=== PATIENT | male | born 1975 | race Caucasian/White ===

== ENCOUNTER 2025-03-03 03:44 | Observation (INO) | payer OTHER, SELFPAY ==
[2025-03-02 17:13] VITALS: BP 158/97
[2025-03-02 17:31] LABS: Hematocrit 43.7 % (39.0-52.0); Hemoglobin 14.8 g/dL (13.0-18.0); Mean Corp Hgb Conc. 33.9 g/dL (33.0-37.0); Mean Corpuscular Volume 83.4 fL (80.0-94.0); Nucleated Red Blood Cells % 0 % (-); Platelet Count 291 10^3/uL (130-400); Red Cell Dist. Width 12.6 % (11.5-14.5)
[2025-03-02 17:44] LABS: INR 0.96; PT 12.9 Sec (11.4-14.6)
[2025-03-02 17:47] LABS: ALT (SGPT) 37 U/L (0-50); AST (SGOT) 53 U/L (17-59); Albumin 4.7 g/dl (3.5-5.0); Alkaline Phosphatase 86 U/L (38-126); Blood Urea Nitrogen 19 mg/dl (9-20); Calcium 9.5 mg/dl (8.4-10.2); Carbon Dioxide 23 mmol/L (22-30); Chloride 104 mmol/L (98-107); Glucose 79 mg/dl (70-99); Potassium 4.1 mmol/L (3.5-5.1); Sodium 136 mmol/L (135-145); Total Protein 7.2 g/dl (6.3-8.2); eGFR > 60.00
[2025-03-02 17:56] LABS: Troponin I 0.030 ng/ml
[2025-03-02 21:52] VITALS: BP 131/89
[2025-03-02 22:53] LABS: Troponin I 0.035 ng/ml
--- NOTE | 2025-03-02 23:34 | ED.GENMED ---
History of Present Illness
<Tari Rivera PA-C - Last Filed: 03/03/25 07:32>
General
Chief Complaint: Musculo-Skeletal Complaint
Source: patient
Exam Limitations: none
Time Seen by Provider: 03/02/25 23:09
Nursing documentation reviewed up to this point in time: agreed with
History of Present Illness
History of Present Illness:
49-year-old male with past medical history of renal stones who presents to the ER today with concerns of left arm weakness and pain for the past 3 weeks intermittently on and off. The past week, he started to develop left leg cramping with this as
well. He is particularly concerned about cardiac etiology as he has a father who had a aortic aneurysm repair and uncle who had a heart attack at a young age. Patient denies any central chest pain at this time. He denies any fevers or chills. He
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 He denies any back pain. He denies abdominal pain, nausea, vomiting.
Troponin was ordered prior to my which is slightly elevated. He denies any cough or cold-like symptoms. He denies any recent long distance travel. He does not smoke. Physically high cholesterol but is not taking medications for this. He does
not take any medication for blood pressure
Review of Systems
<Tari Rivera PA-C - Last Filed: 03/03/25 07:32>
Review of Systems
All Other Systems: ROS reviewed and negative except as documented in HPI and ROS
Phy Exam
<Tari Rivera PA-C - Last Filed: 03/03/25 07:32>
Physical Exam
Physical Exam:
General: Patient is well appearing and in no acute distress; non-toxic
Skin: Warm and dry, no rashes or lesions
Head: Normocephalic, atraumatic
Eyes: Sclera non-icteric. EOMs intact.
Cardiac: Regular rate and rhythm, no murmurs
Peripheral Vascular: No lower extremity swelling or edema
Pulm: Normal respiratory effort, no wheezes, rales, or rhonchi
Abdomen: No abdominal tenderness to palpation
Neuro: CN II-XII intact, no focal neurologic deficits.
Psychiatric: Appropriate mood and affect.
Course
<Tari Rivera PA-C - Last Filed: 03/03/25 07:32>
Orders/Labs/Results
Orders:
Orders
03/02/25 17:07
EKG [Electrocardiogram (*1)] Urgent
Reason for Study: Fatigue / Weakness
EKG- Treatment ONCE
03/02/25 17:23
Complete Blood Count/With Diff Urgent
Comprehensive Metabolic Panel Urgent
Prothrombin Time Urgent
Troponin I Urgent
03/02/25 22:04
Troponin I Urgent
03/02/25 23:30
Electrocardiogram (*1) Urgent
Reason for Study: Other
Other Reason for Exam: anginal equivalent
03/03/25
CT Chest Angio W/wo Iv Contras Urgent
Reason For Exam: left arm pain, elevated trop
03/03/25 03:29
Admit/Transfer Patient As Directed
Co-Sign Provider:
Level of Care: Observation services
Assign to:: Telemetry
Physician / Group: Thom
Diagnosis: Arm pain
Reason for Telemetry: Chest Pain syndromes
Date to Stop Telemetry: 03/05/25
Time to Stop Telemetry: 11:00
03/03/25 03:30
Code Status As Directed
Resuscitation Status: Full Code
PRN Pain Medication Management As Directed
May give lesser potent ordered pain med per pt: Yes
preference::
Protocol:: Medication orders for pain may be administered in a
manner that supports deferring to patient preference
when the pt is:
- Requesting an ordered lesser potent pain medication.
Least to most potent pain medications are defined
as: acetaminophen < NSAID < tramadol < opioids
(morphine, oxycodone, hydromorphone).
- Requesting a lesser dose of the same medication IF
ORDERED.
- Requesting a less intrusive route of administration
if both routes are prescribed by the provider (PO <
IV).
03/03/25 03:52
Activity As Directed
Activity Level: Ambulate
EKG with chest pain [ECG as needed] As Directed
ECG as needed for:: Chest Pain
I/O [Intake/ Output] As Directed
Frequency: Per unit guidelines
Vital Signs As Directed
Frequency: Per unit guidelines
Weight As Directed
Frequency: Daily
Ot Eval And Treat Routine
DX Deep Vein Thrombosis Video Routine
03/03/25 04:00
Acetaminophen [Tylenol] 650 mg PO Q4HPRN PRN
03/03/25 04:57
Basic Metabolic Panel IN AM
Cardiovascular Evaluation IN AM
Complete Blood Count/No Diff IN AM
Glycohemoglobin (HgbA1c) Routine
Troponin I Routine
03/03/25 06:00
EKG [Electrocardiogram (*1)] IN AM
Reason for Study: Chest Pain
NPO
Allow oral meds: Yes
Allow clear liquids: Sips of Clears
03/03/25 08:00
Aspirin Chewable [Low Strength Aspirin] 81 mg PO DAILY
desvenlafaxine succinate [Pristiq] 50 mg PO DAILY
03/03/25 18:00
Enoxaparin Sodium [Lovenox] 40 mg SC QPM
03/05/25 11:00
DC Protocol for Telemetry ONCE
Abnormal Lab Results
03/02/25
22:04
Troponin I 0.035 H* ng/ml
03/02/25 17:23
03/02/25 17:23
Vital Signs
Initial and Last Documented VS:
Initial Vital Signs
Temp Pulse Resp BP Pulse Ox
98.8 F 73 18 158/97 98
03/02/25 17:13 03/02/25 17:13 03/02/25 17:13 03/02/25 17:13 03/02/25 17:13
Last Documented Vital Signs
Temp Pulse Resp BP Pulse Ox
98.8 F 52 12 120/75 98
03/02/25 17:13 03/03/25 06:00 03/03/25 06:00 03/03/25 03:09 03/02/25 23:40
<Martin Francis, DO - Last Filed: 03/02/25 23:50>
Orders/Labs/Results
Orders:
Orders
03/02/25 17:07
EKG [Electrocardiogram (*1)] Urgent
Reason for Study: Fatigue / Weakness
EKG- Treatment ONCE
03/02/25 17:23
Complete Blood Count/With Diff Urgent
Comprehensive Metabolic Panel Urgent
Prothrombin Time Urgent
Troponin I Urgent
03/02/25 22:04
Troponin I Urgent
03/02/25 23:30
Electrocardiogram (*1) Urgent
Reason for Study: Other
Other Reason for Exam: anginal equivalent
03/03/25
CT Chest Angio W/wo Iv Contras Urgent
Reason For Exam: left arm pain, elevated trop
03/03/25 03:29
Admit/Transfer Patient As Directed
Co-Sign Provider:
Level of Care: Observation services
Assign to:: Telemetry
Physician / Group: Thom
Diagnosis: Arm pain
Reason for Telemetry: Chest Pain syndromes
Date to Stop Telemetry: 03/05/25
Time to Stop Telemetry: 11:00
03/03/25 03:30
Code Status As Directed
Resuscitation Status: Full Code
PRN Pain Medication Management As Directed
May give lesser potent ordered pain med per pt: Yes
preference::
Protocol:: Medication orders for pain may be administered in a
manner that supports deferring to patient preference
when the pt is:
- Requesting an ordered lesser potent pain medication.
Least to most potent pain medications are defined
as: acetaminophen < NSAID < tramadol < opioids
(morphine, oxycodone, hydromorphone).
- Requesting a lesser dose of the same medication IF
ORDERED.
- Requesting a less intrusive route of administration
if both routes are prescribed by the provider (PO <
IV).
03/03/25 03:52
Activity As Directed
Activity Level: Ambulate
EKG with chest pain [ECG as needed] As Directed
ECG as needed for:: Chest Pain
I/O [Intake/ Output] As Directed
Frequency: Per unit guidelines
Vital Signs As Directed
Frequency: Per unit guidelines
Weight As Directed
Frequency: Daily
Ot Eval And Treat Routine
DX Deep Vein Thrombosis Video Routine
03/03/25 04:00
Acetaminophen [Tylenol] 650 mg PO Q4HPRN PRN
03/03/25 04:57
Basic Metabolic Panel IN AM
Cardiovascular Evaluation IN AM
Complete Blood Count/No Diff IN AM
Glycohemoglobin (HgbA1c) Routine
Troponin I Routine
03/03/25 06:00
EKG [Electrocardiogram (*1)] IN AM
Reason for Study: Chest Pain
NPO
Allow oral meds: Yes
Allow clear liquids: Sips of Clears
03/03/25 08:00
Aspirin Chewable [Low Strength Aspirin] 81 mg PO DAILY
desvenlafaxine succinate [Pristiq] 50 mg PO DAILY
03/03/25 18:00
Enoxaparin Sodium [Lovenox] 40 mg SC QPM
03/05/25 11:00
DC Protocol for Telemetry ONCE
Abnormal Lab Results
03/02/25
22:04
Troponin I 0.035 H* ng/ml
03/02/25 17:23
03/02/25 17:23
Vital Signs
Initial and Last Documented VS:
Initial Vital Signs
Temp Pulse Resp BP Pulse Ox
98.8 F 73 18 158/97 98
03/02/25 17:13 03/02/25 17:13 03/02/25 17:13 03/02/25 17:13 03/02/25 17:13
Last Documented Vital Signs
Temp Pulse Resp BP Pulse Ox
98.8 F 52 12 120/75 98
03/02/25 17:13 03/03/25 06:00 03/03/25 06:00 03/03/25 03:09 03/02/25 23:40
Edithlt;Tari Rivera PA-C - Last Filed: 03/03/25 07:32>
MDM/Problems Addressed
Differential Diagnosis Includes:
Left arm sprain, pericarditis, myocarditis, ACS, PE, pneumothorax
MDM/Problems Addressed:
49-year-old male presents to ER today with concerns of left arm pain. He is concerned for cardiac etiology because he has a strong family history. Pain is worse with movement. He has no arm pain at rest. No chest pain at rest. Clinically,
sounds like musculoskeletal etiology however troponin ordered prior arrival was elevated at 0.035 with no ischemic changes on his ECG. Prior to arrival, ECG was not repeated with repeat abnormal troponin. I have ordered this urgently and we will
place IV.
CTA negative for aneurysm, dissection, pulmonary embolism. He will require admission for continued trending of troponins and cardiac evaluation in light of family hx
<Tari Rivera PA-C - Last Filed: 03/03/25 07:32>
*Pulse Oximetry
SaO2: 98
Oxygen Mode of Delivery: Room air
Patient hypoxic: no
*EKG
Interpreted by ED Provider?: Yes
EKG Intrepretation Date: 03/03/25
Interpretation: normal
Comparison EKG: no comparison EKG present
Heart Rate: 57
Rate: bradycardiac
Rhythm: sinus
Coamo: normal axis
*Critical Care Note
Total Time (30-74mins, 75-104mins- exclusive of procedures): Not Applicable
Data Reviewed
Review of Other/Old Records Reveals: Records (Reviewed)
Source: patient
ED Attending Note
<Tari Rivera PA-C - Last Filed: 03/03/25 07:32>
-
Portions of this chart may have been created with voice recognition software.� Occasional wrong word or��sound alike� substitutions may have occurred due to the inherent limitations of voice recognition software.
<Martin Francis DO - Last Filed: 03/02/25 23:50>
ED Attending Note
Patient seen and examined by attending physician: Yes
I performed the substantive portion of visit, reviewed & personally made and approve the management plan that is documented in note by myself or WINDY.: Yes
ED Attending Note:
Pleasant 49-year-old male presents to the emergency department left arm pain and weakness for the last 3 weeks. Upon arrival, patient had no other complaints. Routine lab work showed a bumped troponin that became elevated upon repeat. EKG showed
normal sinus rhythm rate of 61 with normal intervals, normal axis. No evidence of acute ischemia present. Patient denies any cardiac history but does report his uncle had a heart attack in his 40s and his dad had an aortic aneurysm. Patient was
seen in conjunction with the [facility]. I have reviewed and agree with her history and treatment plan. On my independent physical exam patient awake alert and oriented in no acute distress. Heart is regular rate and rhythm, lungs are clear to
auscultation bilaterally. Patient moving all 4 extremities. Patient to be admitted to the hospitalist service.
Discharge Plan
Departure
Patient Disposition: Admit
Date of Disposition: 03/03/25
Time of Disposition: 01:56
Admit to: Med/Surg
Presentation/result/management discussed w/ accepting MD/DO: Hospitalist
Patient with high blood pressure during this ER visit?: Yes
Condition: Fair
Discharge Problem:
Elevated troponin
Interventions
Interventions:
*General Assessment Last Done: 03/02/25 17:15
*Neglect/Abuse Screening Last Done: 03/02/25 17:15
*ED COVID-19 Vaccine History Last Done: 03/02/25 17:15
*ED Influenza Vaccine History Last Done: 03/02/25 17:15
[facility] Fall Risk Assessment Tool Last Done: 03/03/25 00:00
*Risk Screen - Suicide (C-SSRS) Last Done: 03/02/25 17:15
ED-Musculoskeletal Assessment Last Done: 03/03/25 00:31
[2025-03-02 23:52] VITALS: BP 133/69; BMI 28.8
[2025-03-02 23:53] VITALS: BP 135/88
[2025-03-03 03:09] VITALS: BP 120/75
--- NOTE | 2025-03-03 03:33 | HPS.HSE ---
Family Physician
-
Family Physician: Emily Rutherford
Chief Complaint
-
L arm pain
History of Present Illness
Patient is a 49y M with PMH significant for anxiety / depression who presents to ED complaining of left arm pain x 4 weeks. Patient states that he has done no new / significant physical activity or exercise He is R handed and works at a
computer. He has noted pain around the L elbow for the past 4 weeks or so. Pain occurs with very specific movements including flexion / internal rotation or hand grasp. Pain is intermittent and varies in intensity.
He did not think much of this initially. He then developed cramping in the LE that has occurred over the past 2-3 nights. With this constellation of symptoms - and concerned with his family history of CV disease - he presented to the ED for
further evaluation.
Medical History
Past Medical History
Past Medical History: Reports Other
Additional Past Medical History:
Anxiety / Depression
Nephrolithiasis
Past Surgical History: Reports Other
Additional Past Surgical History:
Cysto / Stent
Social History
Tobacco: Non-smoker
Alcohol: Occasional
Drug: None
Family History
Family History: Other (Father: AAA Maternal Uncle: Premature CAD)
Allergies / Home Medications
Allergies reflects when Allergies were last updated in [employer].
Home Medications with original date entered in [employer]
Allergy/Medication List:
Allergies
Allergy/AdvReac Type Severity Reaction Status Date / Time
No Known Allergies Allergy Verified 03/03/25 01:59
Home Medications
desvenlafaxine succinate 50 mg tablet,extended release 24 hr (Pristiq) 50 mg PO DAILY 03/03/25
Review of Systems
-
History Source: Patient
A 12 point ROS was completed and negative except as noted: Yes
Constitutional: Denies Fever, Fatigue or Chills
Respiratory: Denies Cough or Trouble Breathing
Cardiac: Denies Chest Pain or Palpitations
Abdomen/GI: Denies Abdominal Pain, Nausea, Vomiting or Diarrhea
: Denies Dysuria or Flank Pain
Musculoskeletal: Reports Joint Pain; Denies Edema
Neurological: Denies Dizzy or Headache
Psych: Denies Depression or Anxiety
Physical Exam
Vital Signs
Vital Signs
Temp Pulse Resp BP Pulse Ox
98.8 F 82 20 120/75 98
03/02/25 17:13 03/03/25 02:59 03/03/25 02:59 03/03/25 03:09 03/02/25 23:40
Physical Exam
General: Other (49y M in no distress.)
HEENT: Moist mucous membranes and PERRLA
Respiratory: Clear; No Wheezes, Rales or Rhonchi
Cardiac: S1/S2 and Regular Rhythm; No Murmur
GI: Soft, Non Tender, Non Distended and Normal Bowel Sounds
Musculoskeletal: No Clubbing, No Cyanosis, No Edema and Other (Pain at L elbow with hand grasp. No pain with pronation / supination.)
Neuro: AO x 3
Laboratory Results
-
03/02/25 17:23
03/02/25 17:23
Laboratory Results
PT 12.9 Sec (11.4-14.6) 03/02/25 17:23
INR 0.96 03/02/25 17:23
Total Bilirubin 0.2 mg/dl (0.2-1.3) 03/02/25 17:23
AST 53 U/L (17-59) 03/02/25 17:23
ALT 37 U/L (0-50) 03/02/25 17:23
Alkaline Phosphatase 86 U/L (38-126) 03/02/25 17:23
Troponin I 0.035 ng/ml H* 03/02/25 22:04
Impression/Plan
-
A/P: Patient is a 49y M with PMH significant for anxiety / depression who presents to ED complaining of L arm pain and LE cramps.
L Arm Pain
- Observe for further evaluation and treatment.
- Troponin: 0.030 - 0.035. Check 3rd set this AM.
- EKG with no evidence of active ischemia.
- Symptoms present x 4 weeks and seem clearly musculoskeletal based on history / exam.
- Consult Cardiology if any new / worsening symptoms, rising troponin, etc.
- OT evaluation for L elbow discomfort.
- Follow for any new / worsening symptoms.
Anxiety / Depression
- Stable. Continue Pristiq.
DVT Prophylaxis: Lovenox
Code Status: Full
[2025-03-03 05:27] LABS: Hematocrit 42.1 % (39.0-52.0); Hemoglobin 14.2 g/dL (13.0-18.0); Mean Corp Hgb Conc. 33.7 g/dL (33.0-37.0); Mean Corpuscular Volume 82.9 fL (80.0-94.0); Platelet Count 267 10^3/uL (130-400); Red Cell Dist. Width 12.7 % (11.5-14.5)
[2025-03-03 05:40] LABS: Blood Urea Nitrogen 15 mg/dl (9-20); Calcium 9.1 mg/dl (8.4-10.2); Carbon Dioxide 28 mmol/L (22-30); Chloride 104 mmol/L (98-107); Estimated Creatinine Clearance 94 ml/min; Glucose 98 mg/dl (70-99); HDL Cholesterol 47 mg/dl; LDL Cholesterol, Calculated 149 mg/dl; Potassium 4.4 mmol/L (3.5-5.1); Sodium 135 mmol/L (135-145); Very Low Density Lipoprotein 25 mg/dl (0-30); eGFR > 60.00
[2025-03-03 05:51] LABS: Troponin I 0.030 ng/ml
[2025-03-03 07:58] VITALS: BP 123/77
[2025-03-03] MEDS: LOW STRENGTH ASPIRIN 81 MG PO (08:03)
[2025-03-03 09:39] VITALS: BP 136/78
[2025-03-03 14:19] LABS: Glycohemoglobin (HgbA1c) 5.7 % (4.0-5.9)
--- NOTE | 2025-03-03 14:36 | W.PN.HOSP.TC ---
Today's Communication/Plan
-
Dc home today on baby aspiring and follow up with cardiology as outpatient for stress test.
Assessment / Plan
Assessment / Plan
Impression:
Patient is a 49y M with PMH significant for anxiety / depression who presents to ED complaining of left arm pain x 4 weeks. Patient states that he has done no new / significant physical activity or exercise He is R handed and works at a
computer. He has noted pain around the L elbow for the past 4 weeks or so. Pain occurs with very specific movements including flexion / internal rotation or hand grasp. Pain is intermittent and varies in intensity.
He did not think much of this initially. He then developed cramping in the LE that has occurred over the past 2-3 nights. With this constellation of symptoms - and concerned with his family history of CV disease - he presented to the ED for
further evaluation.
Troponin normalized, discussed with cardiology and plan for outpatient.
Assessment/plan:
Left Arm Pain
Patient denies chest pain.
Troponin: 0.030 � 0.035; then 0.030.
EKG shows no evidence of active ischemia.
Symptoms present for 4 weeks and appear clearly musculoskeletal based on history and exam.
Discussed with cardiology plan for outpatient stress.
Patient will be discharged on Baby aspirin.
Anxiety / Depression
Stable; continue Pristiq.
CODE STATUS: Full code
DVT prophylaxis: Lovenox
Diet: Regular diet
Disposition: Dc home today on baby aspiring and follow up with cardiology as outpatient for stress test.
Total time spent on today's encounter was 65 minutes which included time spent in counseling the patient/family regarding diagnosis and treatment plan as listed above, goals of care, and symptom management. Case was discussed with nursing staff,
specialists, and care coordinators/case management. All labs and imaging personally reviewed by me. Remainder the time spent in detailed review of previous records, lab data, imaging, and other medical provider documentation.
Anticipated Discharge: Today
Subjective/Interval History
-
Date of Service: March 03, 2025
Patient seen and examined at bedside, still with pain around left elbow but otherwise denies any chest pain or shortness of breath, no abdominal pain, no nausea, no vomiting, no diarrhea or constipation.
Discussed with cardiology and plan for outpatient follow-up.
Objective Data
-
Labs:
Laboratory Results
03/03/25
04:57
WBC 7.8
Hgb 14.2
Hct 42.1
Plt Count 267
Sodium 135
Potassium 4.4
Chloride 104
Carbon Dioxide 28
BUN 15
Creatinine 1.0
Glucose 98
Calcium 9.1
Vital Signs:
Vital Signs
Temp Pulse Resp BP Pulse Ox
98.8 F 62 16 136/78 98
03/02/25 17:13 03/03/25 09:39 03/03/25 09:39 03/03/25 09:39 03/03/25 09:39
Physical Exam
-
General: Well Developed, Well Nourished, No Apparent Distress and Comfortable
HEENT: Normocephalic, Atraumatic, Moist Mucous Membranes, No Ptosis, PERRLA and Nose Appears Normal
Respiratory: Clear to Auscultation and Non Labored Respirations
Cardiac: Regular Rhythm and S1/S2
Breast: Deferred by me
GI: Soft, Nontender, Nondistended and Normal Bowel Sounds
Genito-urinary: No Costovertebral Tender
Musculoskeletal: No Clubbing, No Cyanosis and No Edema
Skin: Warm
Neuro: Awake, Alert, Oriented, AO x 3 and No Motor Deficits
Psych: Calm
Data Reviewed
-
Diagnostic Radiology: Image personally visualized and interpreted and Report Reviewed by me
CT Scan: Image personally visualized and interpreted and Report Reviewed by me
Ultrasound: Image personally visualized and interpreted and Report Reviewed by me
MRI: Image personally visualized and interpreted and Report Reviewed by me
Medical Tests (Nuc Med, Echo etc): Image personally visualized and interpreted and Report Reviewed by me
Labs: Labs Reviewed by me
Old Records: Reviewed
--- NOTE | 2025-03-03 14:45 | W.DCSUMMARY ---
Discharge Summary
Discharge Data
Date of Admission: 03/03/25
Date of Discharge: 03/03/25
Total time spent discharging patient (in min): 40
-
Pending Results: No
Hospital Course
Hospital course
Patient is a 49y M with PMH significant for anxiety / depression who presents to ED complaining of left arm pain x 4 weeks. Patient states that he has done no new / significant physical activity or exercise He is R handed and works at a
computer. He has noted pain around the L elbow for the past 4 weeks or so. Pain occurs with very specific movements including flexion / internal rotation or hand grasp. Pain is intermittent and varies in intensity.
He did not think much of this initially. He then developed cramping in the LE that has occurred over the past 2-3 nights. With this constellation of symptoms - and concerned with his family history of CV disease - he presented to the ED for
further evaluation.
Troponin normalized, discussed with cardiology and plan for outpatient.
During hospitalization patient was treated from the following
Left Arm Pain
Patient denies chest pain.
Troponin: 0.030 � 0.035; then 0.030.
EKG shows no evidence of active ischemia.
Symptoms present for 4 weeks and appear clearly musculoskeletal based on history and exam.
Discussed with cardiology plan for outpatient stress.
Patient will be discharged on Baby aspirin.
Anxiety / Depression
Stable; continue Pristiq.
CODE STATUS: Full code
DVT prophylaxis: Lovenox
Diet: Regular diet
Disposition: Dc home today on baby aspiring and follow up with cardiology as outpatient for stress test.
Total time spent on today's encounter was 40 minutes which included time spent in counseling the patient/family regarding diagnosis and treatment plan as listed above, goals of care, and symptom management. Case was discussed with nursing staff,
specialists, and care coordinators/case management. All labs and imaging personally reviewed by me. Remainder the time spent in detailed review of previous records, lab data, imaging, and other medical provider documentation.
Anticipated Discharge: Today
Discharge Plan
-
Patient Disposition: Home (Routine Discharge)
Discharge Diagnosis/Procedures: left arm pain
left leg cramps
Diet: As tolerated, Low Fat and Low Cholesterol
Activity: As tolerated
Referrals:
Martin Menchaca MD [Active, Cardiology] - in one to two weeks
Emily Rutherford MD [Family Provider]
Prescriptions:
New
aspirin 81 mg Tablet,Chewable
81 mg PO DAILY 30 Days Qty: 30 0RF
Continued
desvenlafaxine succinate [Pristiq] 50 mg Tablet Extended Release 24 Hr
50 mg PO DAILY
Discharge Orders:
Discharge Patient (As Directed); Ordered 03/03/25
Ordered By: Nikhil Parr
Discharge Date and Time
Discharge Date/Time: 03/03/25 10:30
Print Language: [id number]
== END 2025-03-03 10:30 | disposition home or self-care (01) ==
LOC: ED 03:44
PROVIDERS: Emergency Medicine; Registered Nurse; ADMITTING PHYSICIAN Hospitalist; ATTENDING PHYSICIAN General Practice; EMERGENCY PHYSICIAN Student in an Organized Health Care Education/Training Program; FAMILY PHYSICIAN Family Medicine
DX: M79.602 Pain in left arm (principal); R25.2 Cramp and spasm; F41.9 Anxiety disorder, unspecified; F32.A Depression, unspecified; R79.89 Other specified abnormal findings of blood chemistry; E78.00 Pure hypercholesterolemia, unspecified; Z79.82 Long term (current) use of aspirin; Z79.899 Other long term (current) drug therapy
CPT/HCPCS: 71275; 80048; 80053; 80061; 83036; 84484; 85025; 85027; 85610; 93005; 99285; G0378; Q9967